=== PATIENT | female | born 1970 | race Caucasian/White ===

== ENCOUNTER 2021-11-23 11:11 | Emergency (ER) | payer BC, MEDICAID ==
[~2021-11-23] VITALS: Ht 152.4 cm; Wt 91.6 kg
[2021-11-23 11:26] VITALS: BP 150/81
--- NOTE | 2021-11-23 11:35 | NUR ---
PT W/C ASSISTED TO BED 01.
[2021-11-23] MEDS ORDERED: DICYCLOMINE HCL LIQUID 20 MG, ALUMINUM HYD/MAG/SIMETHICONE 30 ML, LIDOCAINE VISCOUS 2% ... PO ONE ×3 (11:45)
--- NOTE | 2021-11-23 11:50 | NUR ---
51 Y.O. F C/O DIZZINESS, WEAKNESS,EPIGASTRIC PAIN, N/V/D, LUCERO X TODAY. BLOOD SUGAR 289 AT THIS TIME. PT IS COMPLAINING OF 9/10 STOMACH PAIN AND 7/10 HEAD PAIN. DENEIS SOB, CHEST PAIN, FEVER OR CHILLS. A&OX4, SKIN INTACT, VITALS WNL, AND STEADY GAIT. ALLERGY: CODEINE PMH: DM, HYPOTHYROID
[2021-11-23] MEDS ORDERED: DICYCLOMINE HCL LIQUID 10 MG/5 ML UDC ONE (11:51)
[2021-11-23] MEDS ORDERED: ALUMINUM HYD/MAG/SIMETHICONE 30 ML UDC ONE (11:51)
[2021-11-23 12:33] LABS: BASOPHILS % (AUTO) 0.3 % (0.0-2.0); EOSINOPHILS # (AUTO) 0.1 K/uL (0-0.4); EOSINOPHILS % (AUTO) 0.8 % (0.0-4.0); HEMATOCRIT 43.6 % (36-48); HEMOGLOBIN 15.2 g/dL (12.0-16.0); LYMPHOCYTES # (AUTO) 2.4 K/uL (2.5-16.5); LYMPHOCYTES % (AUTO) 36.4 % (20.5-51.1); MEAN CORPUSCULAR HEMOGLOBIN 31 pg (27-31); MEAN CORPUSCULAR HGB CONC 35 g/dL (33-37); MEAN CORPUSCULAR VOLUME 88.5 fL (80-94); MONOCYTES # (AUTO) 0.5 K/uL (0.8-1.0); NEUTROPHILS # (AUTO) 3.6 K/uL (1.8-7.7); NEUTROPHILS % (AUTO) 55.5 % (42.2-75.2); PLATELET COUNT (AUTO) 265 K/uL (140-450); RED BLOOD CELL COUNT(AUTO) 4.92 MIL/uL (4.20-5.40); WHITE BLOOD COUNT (AUTO) 6.6 K/uL (4.8-10.8)
[2021-11-23 12:49] LABS: ALBUMIN 3.8 g/dL (3.4-5.0); ANION GAP 13.1 (8-16); ASPARTATE AMINOTRANSFERASE 87 U/L (15-37); CARBON DIOXIDE 28.9 mmol/L (21-32); CHLORIDE 99 mmol/L (98-107); CREATININE 0.6 mg/dL (0.6-1.3); GFR ARICAN-AMERICAN 136 mL/min (>90); GLUCOSE 269 mg/dL (74-106); LIPASE 78 U/L (73-393); SODIUM SERUM 137 mmol/L (136-145); TOTAL BILIRUBIN 0.5 mg/dL (0.0-1.0); UREA NITROGEN, BLOOD 14 mg/dL (7-18)
[2021-11-23] MEDS ORDERED: FAMO-92 PO (13:15)
[2021-11-23] MEDS ORDERED: SIME125T38 PO (13:15)
[2021-11-23 13:50] VITALS: BP 150/81
--- NOTE | 2021-11-23 13:50 | NUR ---
Patient discharged with v/s stable. Written and verbal after care instructions given and explained. Patient alert, oriented and verbalized understanding of instructions. Ambulatory with steady gait. All questions addressed prior to discharge. ID band removed. Patient advised to follow up with PMD. Rx of PEPCID AND MYLANTA GAS MINIS given. Patient educated on indication of medication including possible reaction and side effects. Opportunity to ask questions provided and answered.
== END 2021-11-23 13:50 | disposition home or self-care (01) ==
LOC: MED 11:11
DX: K29.70 Gastritis, unspecified, without bleeding (principal); E03.9 Hypothyroidism, unspecified; Z79.899 Other long term (current) drug therapy
CPT/HCPCS: 36415; 71045; 80053; 81002; 81025; 82948; 83690; 84484; 85025; 93005; 99285